=== PATIENT | male | born 2000 | race Caucasian/White ===

== ENCOUNTER 2021-04-03 10:00 | Outpatient (RCR) | payer OTHER, SELFPAY ==
--- NOTE | 2021-03-19 14:21 | PC.NURSE ---
Case opened in treatment team
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
[2021-03-19 14:42] VITALS: BMI 34.0
--- NOTE | 2021-03-20 08:39 | PC.ADMIT ---
Patient is a 20 year old male who was referred to [facility] by his outpatient clinician d/t patient struggling with increased depression with passive SI, no plan or intent, and increased anxiety. Feels much guilt and shame over not being able to work d/t his mental health and experiencing feelings of helplessness and hopelessness. Patient has low self esteem. Patient stated that it was suggested to him that he go on disability as he is unable to work at this time however patient stated he does not want to live a life on disability. Patient has been self medicating with marijuana. Patient is alert and oriented x4. Presents with depressed mood and affect. Denied current SI however patient reports he has thoughts all the time and when feeling better the thoughts are always in the back of his mind. Denied plan or intent to harm of kill himself. 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 Patient gave verbal permission to email him a copy of his safety plan. Patient stated that it was suggested to him to go on disability as he is not able to work. Patient stated he wants to work and does not want to live a life on disability. Patient is using marijuana daily to self medicate. Patient also drinking ETOH 2 x a week from 4-6 beers. Educated patient on the effects of heavy marijuana use and ETOH use and mixing with medications. Medications reconciled with patient and [facility]. Patient reports that he sometimes forgets to take his medications. Educated patient on tips to improve medication compliance.
--- NOTE | 2021-03-20 12:07 | PC.NURSE ---
TW called pt at 850am to verify verbal consent for a PCP release. Pt answered the phone sounding groggy. Pt informed TW that he gave verbal consent to the release, however he may not attend groups for the day due to not being able to keep his eyes open . TW encouraged pt to attempt the groups, however if not to call his clinician. At 9am pt was a DNS for community meeting. Clinician to reach out to pt.
--- NOTE | 2021-03-20 13:29 | PC.NURSE ---
I called the client. He had been sleeping. We discussed that he couldn't come in today and he agrees to be here on time Tuesday.
--- NOTE | 2021-03-27 09:18 | PC.NURSE ---
Chang did not show up to the program today. He was scheduled for a medication appointment today 03/27/21 at 12:00. Barbara Vaughan will follow up with patient.
--- NOTE | 2021-03-27 09:24 | PC.NURSE ---
I called Chang and woke him up as he did not show up to community meeting this morning. Chang stated he overslept. Patient plans on getting dressed and is going to the first group. Team is aware.
--- NOTE | 2021-03-27 15:58 | P.PNPSP_ITS ---
Subjective Subjective Date of Service: 03/27/21 Reason For Visit: MDD Subjective Notes: [facility]on Warning Guardianship: No Medical Problems Affecting Mental Status: No Interim History: Chang reports that he is still experiencing dysphoria. He states that he has been taking the Trileptal and venlafaxine for several months. He states at 1st they were helping with his symptoms, but now he feels as if they have plateaued. He states that he has also been through a lot over the past several months, including issues at work, and also needing to put his cat to sleep. He does report intrusive thoughts, passive SI. He states he has no intent or plan. He states that he feels safe, and has support if he needs to reach out to people. We discussed options regarding adjunct of medication, such as consideration of a low-dose of another antidepressant, or considering a low-dose atypical antipsychotic. He states he is willing to try low-dose of Abilify. PLAN: Add abilify 2mg daily. Script sent to pharmacy. Will f/u in one week, sooner if needed. Medication Compliance: Yes Side effects from medications: No Attending Groups: Yes Review of Systems Constitutional: Reports no additional constitutional complaints Respiratory: Reports chest congestion and Reports cough Comments: Patient is suffering with cold symptoms, plans to reach out to medical provider if symptoms do not subside by this Tuesday. Psychiatric: Reports depression and Reports suicidal ideation (Intrusive thoughts of self-harm, no intent, no plan. Reports he does feel ) Mental Status Exam Mental Status Exam Narrative: Well-developed, well-nourished male, in no apparent distress. Sitting up in chair during encounter. Patient Appearance: Well Grooomed and Appropriate Patient Orientation: Person, Place, Time and Situation Level of Consciousness: Awake and Appropriate Patient Behavior: Appropriate and Good Eye Contact Mood Description: Appropriate, Depressed and Anxious Affect Description: Appropriate, Depressed and Anxious Patient Cognition Impaired: No Ability to Follow Directions: Excellent Speech Pattern: Clear and Monotone Hallucinations: None Delusions: Not Present Thought Process: Intact, Goal Oriented and Linear Thought Content: positive for Intact and positive for Suicidal Ideation (passive, no intnet, no plan) Depressive Symptoms: Increased Anxiety, Crying Spells, Hopelessness, Feelings of Guilt, Low Self Esteem and Loss of Energy Judgement: Good Judgement and Insight: Overall judgment and insight intact, patient is help see renetta. Diagnostics Vital Signs (24Hr): Body Mass Index 34.0 Assessment & Plan Assessment & Plan (1) Major depressive disorder, recurrent severe without psychotic features: Status: Acute Code(s): F33.2 - Major depressive disorder, recurrent severe without psychotic features Assessment and Plan: Patient does report continued depressive symptoms, with intrusive thoughts, pa reid SI. Reports he is taking Trileptal and Effexor as ordered, but feels they are not helping enough to manage his symptoms. Patient is willing to try low- dose Abilify as an adjunct of medication at this time. PLAN: Start abilify Script sent to pharmacy. F/u in one week, sooner if needed. Patient educated on: diagnosis, medication risk/benefits and therapeutic strategies Informed Consent: understands Reason for contiued partial hosp. stay Substantial Risk for: inability to function and med/psych decompensation Certification I certify that partial hospital treatment is medically necessary due to the symptoms and problems resulting from the patient's mental illness and the failure to treat the patient at the partial hospital level of care would likely result in the patient requiring inpatient psychiatric care which could not be prevented at a less intensive level of care. Greater than 50% of the session was spent on counseling and/or coordination of care Discharge Plan Discharge Attending provider: Darrick Richmond Medications: New aripiprazole [Abilify] 2 mg tablet 2 mg PO DAILY 7 Days Qty: 7 RF: 0 No Action oxcarbazepine [Trileptal] 600 mg Tablet 1,200 mg PO BEDTIME RF: 0 cholecalciferol (vitamin D3) [Vitamin D3] 50 mcg (2,000 unit) Capsule 50 mcg PO DAILY RF: 0 venlafaxine 225 mg Tablet Extended Release 24hr 225 mg PO DAILY RF: 0 Telehealth Telehealth Location of provider rendering services: practice address Location of patient: address on file Patient Identification confirmed using: Name, : Yes Telehealth method: video Patient verbally consented to treatment: Yes Patient verbally consented to billing insurance company: Yes Patient informed of any privacy concerns related to visit: Yes Time spent with patient (mins): 15
--- NOTE | 2021-03-30 09:22 | PC.NURSE ---
Pt did not attend community meeting. Tw called pt however no answer and voicemail full. Email sent to check pt status and safety, asking pt to call into program. Reminded pt that the emergency contact will be called should he not check in. Pt informed he will have to take the day, and [facility] Pt informed that assigned clinician out today, so if he left a with her it could not be retrieved. Awaiting call/email back.
--- NOTE | 2021-03-30 12:07 | PC.NURSE ---
Pt called the program to inform that he again had overslept. He reported that he had set his alarm, however his phone during the night. 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 Pt reported that he was upset with himself that he overslept again. Pt reported that he was safe and he would be at [facility] tomorrow.
--- NOTE | 2021-03-31 13:33 | HO.PHPPROGNO ---
Subjective Subjective Date of Service: 03/31/21 Reason For Visit: MDD Subjective Notes: [place] Warning Guardianship: No Medical Problems Affecting Mental Status: No Interim History: Chang reports that He has been taking the Abilify 2 mg for approximately 3-4 days. He states that currently he feels his depression is somewhat less than it was last week, but it is still there. Reports experiencing depressive symptoms of guilt, feeling bad about himself, poor concentration, decreased energy. Patient also reported that I am just frustrated, with the mistakes I make . When asked to elaborate, he states that he feels he is very forgetful and he will enter the house, lock door behind him, which will in turn walk his mother out. He states that he beats myself up a lot over stuff like this . Patient was yawning during encounter. He reports that he slept 10 hours last night, and that he believes it was too much sleep, and now he is overtired . He denies any thoughts of harm to self or others, no safety concerns. We discussed current medication regimen. Patient will continue Abilify 2 mg daily that was added last week, with consideration of increasing dose in several days. Patient will check in with this provider later this week regarding medication dose. Refill sent to pharmacy. Medication Compliance: Yes Side effects from medications: No Attending Groups: Yes Review of Systems Review of Systems a review of systems was completed and was negative except for fatigue. Yes all other systems are reviewed and are negative Constitutional: Reports daytime sleepiness and Reports fatigue Endocrine: Reports fatigue Mental Status Exam Mental Status Exam Narrative: Well-developed, well-nourished male, in no apparent distress. Sitting up appropriately, attentive during encounter. Patient Appearance: Well Grooomed, Fatigued and Appropriate Patient Orientation: Person, Place, Time and Situation Level of Consciousness: Awake, Appropriate and Alert Patient Behavior: Appropriate, Cooperative and Good Eye Contact Mood Description: Calm, Appropriate and Depressed Affect Description: Appropriate, Depressed and Blunted Patient Cognition Impaired: No Ability to Follow Directions: Excellent Speech Pattern: Clear, Appropriate and Coherent Memory Description: Intact Hallucinations: None Delusions: Not Present Thought Process: Intact, Goal Oriented and Linear Thought Content: positive for Intact, positive for Goal Oriented, positive for Linear and positive for Suicidal Ideation ( Denies any type of thoughts of harm to self or others.) Depressive Symptoms: Sleeping More Than Usual, Loss of Int. in Activity, Feelings of Worthlessness, Feelings of Guilt, Unhappiness and Increased Fatigue Judgement: Fair Diagnostics Vital Signs (24Hr): Body Mass Index 34.0 Assessment & Plan Assessment & Plan (1) Major depressive disorder, recurrent severe without psychotic features: Status: Acute Code(s): F33.2 - Major depressive disorder, recurrent severe without psychotic features Assessment and Plan: Patient does reports some improvement in depression, however still has significant amount of depressive symptoms present. Recently started Abilify 2 mg as adjunct of to present meds. Plan: No current med changes at this time. Script for Abilify refill sent to pharmacy. Will follow-up with patient later this week to discuss possible increase in Abilify if needed, Otherwise will meet with patient as per protocol.. (2) Cannabis dependence, daily use: Status: Acute Code(s): F12.20 - Cannabis dependence, uncomplicated Patient educated on: diagnosis, medication risk/benefits and therapeutic strategies Informed Consent: understands Reason for contiued partial hosp. stay Substantial Risk for: inability to function and med/psych decompensation Certification I certify that partial hospital treatment is medically necessary due to the symptoms and problems resulting from the patient's mental illness and the failure to treat the patient at the partial hospital level of care would likely result in the patient requiring inpatient psychiatric care which could not be prevented at a less intensive level of care. Greater than 50% of the session was spent on counseling and/or coordination of care Discharge Plan Discharge Attending provider: Darrick Richmond Medications: New aripiprazole [Abilify] 2 mg tablet 2 mg PO DAILY 7 Days Qty: 7 RF: 0 No Action oxcarbazepine [Trileptal] 600 mg Tablet 1,200 mg PO BEDTIME RF: 0 cholecalciferol (vitamin D3) [Vitamin D3] 50 mcg (2,000 unit) Capsule 50 mcg PO DAILY RF: 0 venlafaxine 225 mg Tablet Extended Release 24hr 225 mg PO DAILY RF: 0 Telehealth Telehealth Location of provider rendering services: practice address Location of patient: address on file Patient Identification confirmed using: Name, : Yes Telehealth method: video Patient verbally consented to treatment: Yes Patient verbally consented to billing insurance company: Yes Patient informed of any privacy concerns related to visit: Yes Time spent with patient (mins): 15
--- NOTE | 2021-04-03 14:46 | HO.PHPPROGNO ---
Subjective Subjective Date of Service: 04/03/21 Reason For Visit: MDD Subjective Notes: [place] Warning Guardianship: No Medical Problems Affecting Mental Status: No Interim History: Met with patient today on his final day in [facility]. He reports that current medication regimen is working well, that he feels safe, and ready to be discharged. States ?I am in a good mood today ?. Denies any thought of harm to self or others. States that he does not require any refills at this time. No safety concerns. Medication Compliance: Yes Side effects from medications: No Attending Groups: Yes Review of Systems Review of Systems Well-developed, well-nourished male, no apparent distress. Alert and oriented x4, fully conversant during encounter. No mood lability or restriction noted. Yes all other systems are reviewed and are negative Mental Status Exam Mental Status Exam Patient Appearance: Well Grooomed and Appropriate Patient Orientation: Person, Place, Time and Situation Level of Consciousness: Awake, Appropriate and Alert Patient Behavior: Appropriate, Cooperative and Good Eye Contact Mood Description: Appropriate Affect Description: Appropriate Patient Cognition Impaired: No Ability to Follow Directions: Excellent Speech Pattern: Clear, Appropriate and Coherent Memory Description: Intact Hallucinations: None Delusions: Not Present Thought Process: Intact, Goal Oriented and Linear Thought Content: positive for Intact, positive for Goal Oriented and positive for Linear Judgement: Fair Judgement and Insight: Judgment and insight overall appear improved. Diagnostics Vital Signs (24Hr): Body Mass Index 34.0 Assessment & Plan Assessment & Plan (1) Major depressive disorder, recurrent severe without psychotic features: Status: Acute Code(s): F33.2 - Major depressive disorder, recurrent severe without psychotic features Assessment and Plan: Patient feels overall improved depressive symptoms with added Abilify. No safety concerns at this time. Patient will follow up with his own outpatient provider going forward. Patient educated on: diagnosis, medication risk/benefits and therapeutic strategies Informed Consent: understands Reason for contiued partial hosp. stay Substantial Risk for: stable for discharge Certification I certify that partial hospital treatment is medically necessary due to the symptoms and problems resulting from the patient's mental illness and the failure to treat the patient at the partial hospital level of care would likely result in the patient requiring inpatient psychiatric care which could not be prevented at a less intensive level of care. Greater than 50% of the session was spent on counseling and/or coordination of care Discharge Plan Discharge Attending provider: Darrick Richmond Additional Instructions: Tara Winter 04/07/21 Dr Schwartz Both at [facility] Medications: New aripiprazole [Abilify] 2 mg tablet 2 mg PO DAILY 7 Days Qty: 7 RF: 0 No Action oxcarbazepine [Trileptal] 600 mg Tablet 1,200 mg PO BEDTIME RF: 0 cholecalciferol (vitamin D3) [Vitamin D3] 50 mcg (2,000 unit) Capsule 50 mcg PO DAILY RF: 0 venlafaxine 225 mg Tablet Extended Release 24hr 225 mg PO DAILY RF: 0 Stand Alone Forms: Patient Portal Discharge page Telehealth Telehealth Location of provider rendering services: practice address Location of patient: address on file Patient Identification confirmed using: Name, : Yes Telehealth method: video Patient verbally consented to treatment: Yes Patient verbally consented to billing insurance company: Yes Patient informed of any privacy concerns related to visit: Yes Time spent with patient (mins): 15
--- NOTE | 2021-04-06 11:39 | PC.NURSE ---
Patient discharged 04/03/2021. Patient met with Nereyda Ross APRN re: medications, discharge. Patient states he is ready for discharge. No safety issues.
== END 2021-04-06 07:52 | disposition home or self-care (01) ==
LOC: HO.PHPA 10:00
PROVIDERS: Visit Provider Psychiatry & Neurology Psychiatry
DX: F33.2 Major depressive disorder, recurrent severe without psychotic features (principal); F12.20 Cannabis dependence, uncomplicated; Z79.899 Other long term (current) drug therapy
CPT/HCPCS: 90791; 90853

== ENCOUNTER 2022-06-04 19:30 | Inpatient (IN) | payer OTHER, MEDICAID, SELFPAY ==
[2022-06-04 19:39] VITALS: BP 128/88; PULSE 95; RESP 18; TEMP 36.7; O2SAT 99; BMI 29.6
--- NOTE | 2022-06-04 19:57 | ED_ITS ---
HPI - Psych General Chief Complaint: Psychiatric Symptoms <DIEGO Bennett Last Filed: 06/04/22 23:36> Stated Complaint: SI,RECENT SELF HARM PER EMS <DIEGO Bennett Last Filed: 06/04/22 23:36> Time Seen by Provider: 06/04/22 19:57 <DIEGO Bennett Last Filed: 06/04/22 23:36> Source: patient and EMS <DIEGO Bennett Last Filed: 06/04/22 23:36> Mode of arrival: EMS <DIEGO Bennett Last Filed: 06/04/22 23:36> Limitations: no limitations <DIEGO Bennett Last Filed: 06/04/22 23:36> History of Present Illness HPI Narrative: 21 y/o M with a PMHx of cannabis dependence and depression who presents to the ED via EMS on a Section 12 for evaluation of depression and SI. The patient reports that he has been feeling increasingly depressed for the past few weeks. 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 He reports + SI at this time, denies HI. He reports compliance with psych medications at home. He denies auditory/visual/tactile hallucinations. Denies medical complaints at this time including chest pain, shortness of breath, abdominal pain, nausea, vomiting, dizziness, headache. <DIEGO Bennett Last Filed: 06/04/22 23:36> MD complaint: suicidal ideation and feels depressed <DIEGO Bennett Last Filed: 06/04/22 23:36> Related Data Home Medications: Home Medications Medication Instructions Recorded Confirmed cholecalciferol (vitamin D3) 50 1 cap PO QAM 06/04/22 06/04/22 mcg (2,000 unit) capsule (Vitamin D3) hydroxyzine HCl 50 mg tablet 2 tab PO DAILY PRN Anxiety 06/04/22 06/04/22 quetiapine 100 mg tablet 1 tab PO BEDTIME anxiety 06/04/22 06/04/22 selegiline 9 mg/24 hr transdermal 1 patch topical DAILY 06/04/22 06/04/22 24 hour patch (Emsam) selegiline HCl 5 mg tablet 1 tab PO DAILY 06/04/22 06/04/22 <DIEGO Bennett Last Filed: 06/04/22 23:36> Allergies/Adverse Reactions: Allergies Allergy/AdvReac Type Severity Reaction Status Date / Time No Known Allergies Allergy Verified 03/19/21 15:02 <DIEGO Bennett Last Filed: 06/04/22 23:36> Review of Systems Review of Systems: Constitutional : No Weight loss, No Fever, No Chills, No Fatigue, No Malaise ENT/Mouth : No sore throat, No Rhinorrhea Eyes: No Eye Pain, No Swelling, No Redness Cardiovascular : No Chest Pain, No SOB, No Dyspnea on Exertion, No Orthopnea, No Edema, No Palpitations Respiratory : No Cough, No Sputum, No Wheezing Gastrointestinal : No Nausea, No Vomiting, No Diarrhea, No Constipation, No abdominal Pain, No Hematochezia, No Melena Genitourinary : No Dysuria, No Urinary Frequency, No Hematuria, Musculoskeletal : No joint pain, No Myalgias, No Joint Swelling Skin : No Skin Lesions, No rash Neuro : No Weakness, No Numbness, No Dizziness, No Headache Psych : No Anxiety/Panic, + Depression, + SI, No hallucinations, No HI All other systems reviewed and are negative <DIEGO Bennett Last Filed: 06/04/22 23:36> Yes all other systems are reviewed and are negative <DIEGO Bennett Last Filed: 06/04/22 23:36> [facility] Past Medical History Attestation statement: The following information was validated with the patient. <DIEGO Bennett Last Filed: 06/04/22 23:36> Source: old records reviewed and nursing notes reviewed <DIEGO Bennett Last Filed: 06/04/22 23:36> Social History Social History: Social History Household Members: Family Patient Tobacco Use Status: Never used Tobacco Advance Directives: No <DIEGO Bennett Last Filed: 06/04/22 23:36> Physical Exam 2 Vital Signs: Vital Signs: Last Vital Signs Temp 97.7 F 09/16/22 23:07 Pulse 81 06/04/22 23:07 Resp 16 06/04/22 23:07 BP 123/85 06/04/22 23:07 Pulse Ox 98 06/04/22 23:07 O2 Del Method 06/04/22 23:07 BMI result Body Mass Index 29.6 VSS <DIEGO Bennett - Last Filed: 06/04/22 23:36> Vital Signs: Last Vital Signs Temp 97.7 F 06/04/22 23:07 Pulse 81 06/04/22 23:07 Resp 16 06/04/22 23:07 BP 123/85 06/04/22 23:07 Pulse Ox 98 06/04/22 23:07 O2 Del Method 06/04/22 23:07 BMI result Body Mass Index 29.6 <Cassius Mejia MD - Last Filed: 06/05/22 09:29> Appearance: Alert.? Oriented X3.? No acute distress.?Appears comfortable, responsive to questions. Head: Normocephalic, atraumatic, no step-offs or deformities Eyes: Pupils equal, round and reactive to light.? Neck: Normal inspection.? Neck supple.? CVS: Normal heart rate and rhythm.? Pulses normal.? Respiratory: No respiratory distress.? Breath sounds normal.? Abdomen: Soft and nontender.? Skin: Skin warm and dry.? Normal skin color.? Normal skin turgor.?Healing, almaguer perficial linear abrasions on upper extremities. Extremities: No lower extremity edema.? No calf ttp. 5/5 strength to bilateral upper and lower extremities Neuro: Oriented X 3.? No motor deficit.? No sensory deficit. CN 2-12 intact <DIEGO Bennett - Last Filed: 06/04/22 23:36> Course Reevaluation(s) Reevaluation #1: CBC within normal limits. Chemistry pending. Toxicology positive for marijuana ethanol negative. COVID negative. <DIEGO Bennett - Last Filed: 06/04/22 23:36> Time: 21:35 <DIEGO Bennett - Last Filed: 06/04/22 23:36> Reevaluation #2: Chemistry with no acute findings. At this time patient will be placed in physician observation to allow more time to be evaluated by the behavioral health team. At time observation was started patient common cooperative no acute distress <DIEGO Bennett - Last Filed: 06/04/22 23:36> Time: 23:35 <DIEGO Bennett - Last Filed: 06/04/22 23:36> Reevaluation #3: Patient seen by N and plan for inpatient psych admission for increased depression with suicidal ideation , patient with stable vitals last night was uneventful <Cassius Mejia MD - Last Filed: 06/05/22 09:29> Time: 09:29 <Cassius Mejia MD - Last Filed: 06/05/22 09:29> MDM - Psych MDM Narrative Medical decision making narrative: 20:00 21 y/o M presenting on a Section 12 for evaluation of increasing depression and SI. Recent self harm, cutting upper extremities with box machine operator. Reports compliance with medications. PE benign. Plan to obtain medical clearance and obtain behavioral health evaluation. <DIEGO Bennett - Last Filed: 06/04/22 23:36> Medical Records Attestation: I reviewed the patient's medical records. <DIEGO Bennett - Last Filed: 06/04/22 23:36> Lab Data Attestation: I reviewed the patient's lab results. <DIEGO Bennett - Last Filed: 06/04/22 23:36> Result diagrams: : 06/04/22 20:08 06/04/22 22:56 <DIEGO Bennett - Last Filed: 06/04/22 23:36> Labs: Lab Results 06/04/22 06/04/22 06/04/22 Range/Units 20:08 20:08 20:08 WBC 7.7 (4.8-10.8) X10*3/uL RBC 5.06 (4.60-5.80) X10*6/uL Hgb 14.7 (14.0-18.0) g/dl Hct 43.0 (42.0-52.0) % MCV 85.0 (80.0-98.0) fL MCH 29.1 (27.0-33.0) pg MCHC 34.2 (31.0-36.0) g/dl RDW 12.5 (11.0-16.0) % Plt Count 250 (160-400) X10*3/uL MPV 10.2 (9.4-12.4) fL Immature Gran % (Auto) 0.4 (0.0-0.4) % Neut % (Auto) 47.6 (45-73) % Lymph % (Auto) 40.0 (20-40) % [place] % (Auto) 7.8 (2-11) % Eos % (Auto) 3.4 (0-4) % Baso % (Auto) 0.8 (0-2) % Lymph # (Auto) 3.1 (1.2-4.9) X10*3/uL [place] # (Auto) 0.6 (0.1-1.2) X10*3/uL Eos # (Auto) 0.3 (0.0-0.4) X10*3/uL Baso # (Auto) 0.1 (0.0-0.2) X10*3/uL Abs Immat Gran (auto) 0.03 (0.00-0.03) X10*3/uL Absolute Neuts (auto) 3.7 (2.0-8.3) x10*3/uL Absolute Nucleated RBC 0.000 (0.0-0.012) X10*3/uL Nucleated RBC % (auto) 0.0 (0.0-0.2) /100WBC Sodium Cancelled Potassium Cancelled Chloride Cancelled Carbon Dioxide Cancelled Anion Gap Cancelled BUN Cancelled Creatinine Cancelled Estim Creat Clear Calc Cancelled Estimated GFR Cancelled Random Glucose Cancelled Calcium Cancelled Total Bilirubin Cancelled AST Cancelled ALT Cancelled Alkaline Phosphatase Cancelled Total Protein Cancelled Albumin Cancelled Urine Opiates Screen (Not Detect) Urine Fentanyl Screen (Not Detect) Ur Barbiturates Screen (Not Detect) Ur Phencyclidine Scrn (Not Detect) Ur Amphetamines Screen (Not Detect) U Benzodiazepines Scrn (Not Detect) Urine Cocaine Screen (Not Detect) U Marijuana (THC) Screen (Not Detect) Ethyl Alcohol < 10 mg/dL COVID-19 (NIEL) Negative (Negative) COVID-19 Clin Com See Note 06/04/22 06/04/22 06/04/22 Range/Units 20:13 22:56 22:56 WBC (4.8-10.8) X10*3/uL RBC (4.60-5.80) X10*6/uL Hgb (14.0-18.0) g/dl Hct (42.0-52.0) % MCV (80.0-98.0) fL MCH (27.0-33.0) pg MCHC (31.0-36.0) g/dl RDW (11.0-16.0) % Plt Count (160-400) X10*3/uL MPV (9.4-12.4) fL Immature Gran % (Auto) (0.0-0.4) % Neut % (Auto) (45-73) % Lymph % (Auto) (20-40) % [place] % (Auto) (2-11) % Eos % (Auto) (0-4) % Baso % (Auto) (0-2) % Lymph # (Auto) (1.2-4.9) X10*3/uL [place] # (Auto) (0.1-1.2) X10*3/uL Eos # (Auto) (0.0-0.4) X10*3/uL Baso # (Auto) (0.0-0.2) X10*3/uL Abs Immat Gran (auto) (0.00-0.03) X10*3/uL Absolute Neuts (auto) (2.0-8.3) x10*3/uL Absolute Nucleated RBC (0.0-0.012) X10*3/uL Nucleated RBC % (auto) (0.0-0.2) /100WBC Sodium 139 Potassium 4.4 Chloride 102 Carbon Dioxide 28 Anion Gap 13 BUN 12 Creatinine 0.91 Estim Creat Clear Calc 138.7 Estimated GFR > 60 Random Glucose 84 Calcium 9.6 Total Bilirubin 0.3 AST 15 ALT 19 Alkaline Phosphatase 59 Total Protein 6.8 Albumin 4.5 Urine Opiates Screen Not Detected (Not Detect) Urine Fentanyl Screen Not Detected (Not Detect) Ur Barbiturates Screen Not Detected (Not Detect) Ur Phencyclidine Scrn Not Detected (Not Detect) Ur Amphetamines Screen Not Detected (Not Detect) U Benzodiazepines Scrn Not Detected (Not Detect) Urine Cocaine Screen Not Detected (Not Detect) U Marijuana (THC) Screen POSITIVE H (Not Detect) Ethyl Alcohol < 10 mg/dL COVID-19 (NEIL) (Negative) COVID-19 Clin Com <DIEGO Bennett - Last Filed: 06/04/22 23:36> Lab Results 06/04/22 06/04/22 06/04/22 Range/Units 20:08 20:08 20:08 WBC 7.7 (4.8-10.8) X10*3/uL RBC 5.06 (4.60-5.80) X10*6/uL Hgb 14.7 (14.0-18.0) g/dl Hct 43.0 (42.0-52.0) % MCV 85.0 (80.0-98.0) fL MCH 29.1 (27.0-33.0) pg MCHC 34.2 (31.0-36.0) g/dl RDW 12.5 (11.0-16.0) % Plt Count 250 (160-400) X10*3/uL MPV 10.2 (9.4-12.4) fL Immature Gran % (Auto) 0.4 (0.0-0.4) % Neut % (Auto) 47.6 (45-73) % Lymph % (Auto) 40.0 (20-40) % [place] % (Auto) 7.8 (2-11) % Eos % (Auto) 3.4 (0-4) % Baso % (Auto) 0.8 (0-2) % Lymph # (Auto) 3.1 (1.2-4.9) X10*3/uL [place] # (Auto) 0.6 (0.1-1.2) X10*3/uL Eos # (Auto) 0.3 (0.0-0.4) X10*3/uL Baso # (Auto) 0.1 (0.0-0.2) X10*3/uL Abs Immat Gran (auto) 0.03 (0.00-0.03) X10*3/uL Absolute Neuts (auto) 3.7 (2.0-8.3) x10*3/uL Absolute Nucleated RBC 0.000 (0.0-0.012) X10*3/uL Nucleated RBC % (auto) 0.0 (0.0-0.2) /100WBC Sodium Cancelled Potassium Cancelled Chloride Cancelled Carbon Dioxide Cancelled Anion Gap Cancelled BUN Cancelled Creatinine Cancelled Estim Creat Clear Calc Cancelled Estimated GFR Cancelled Random Glucose Cancelled Calcium Cancelled Total Bilirubin Cancelled AST Cancelled ALT Cancelled Alkaline Phosphatase Cancelled Total Protein Cancelled Albumin Cancelled Urine Opiates Screen (Not Detect) Urine Fentanyl Screen (Not Detect) Ur Barbiturates Screen (Not Detect) Ur Phencyclidine Scrn (Not Detect) Ur Amphetamines Screen (Not Detect) U Benzodiazepines Scrn (Not Detect) Urine Cocaine Screen (Not Detect) U Marijuana (THC) Screen (Not Detect) Ethyl Alcohol < 10 mg/dL COVID-19 (NEIL) Negative (Negative) COVID-19 Clin Com See Note 06/04/22 06/04/22 06/04/22 Range/Units 20:13 22:56 22:56 WBC (4.8-10.8) X10*3/uL RBC (4.60-5.80) X10*6/uL Hgb (14.0-18.0) g/dl Hct (42.0-52.0) % MCV (80.0-98.0) fL MCH (27.0-33.0) pg MCHC (31.0-36.0) g/dl RDW (11.0-16.0) % Plt Count (160-400) X10*3/uL MPV (9.4-12.4) fL Immature Gran % (Auto) (0.0-0.4) % Neut % (Auto) (45-73) % Lymph % (Auto) (20-40) % [place] % (Auto) (2-11) % Eos % (Auto) (0-4) % Baso % (Auto) (0-2) % Lymph # (Auto) (1.2-4.9) X10*3/uL [place] # (Auto) (0.1-1.2) X10*3/uL Eos # (Auto) (0.0-0.4) X10*3/uL Baso # (Auto) (0.0-0.2) X10*3/uL Abs Immat Gran (auto) (0.00-0.03) X10*3/uL Absolute Neuts (auto) (2.0-8.3) x10*3/uL Absolute Nucleated RBC (0.0-0.012) X10*3/uL Nucleated RBC % (auto) (0.0-0.2) /100WBC Sodium 139 Potassium 4.4 Chloride 102 Carbon Dioxide 28 Anion Gap 13 BUN 12 Creatinine 0.91 Estim Creat Clear Calc 138.7 Estimated GFR > 60 Random Glucose 84 Calcium 9.6 Total Bilirubin 0.3 AST 15 ALT 19 Alkaline Phosphatase 59 Total Protein 6.8 Albumin 4.5 Urine Opiates Screen Not Detected (Not Detect) Urine Fentanyl Screen Not Detected (Not Detect) Ur Barbiturates Screen Not Detected (Not Detect) Ur Phencyclidine Scrn Not Detected (Not Detect) Ur Amphetamines Screen Not Detected (Not Detect) U Benzodiazepines Scrn Not Detected (Not Detect) Urine Cocaine Screen Not Detected (Not Detect) U Marijuana (THC) Screen POSITIVE H (Not Detect) Ethyl Alcohol < 10 mg/dL COVID-19 (NEIL) (Negative) COVID-19 Clin Com <Cassius Mejia MD - Last Filed: 06/05/22 09:29> Critical Care Time Critical Care Time Critical Care Time: No <DIEGO Bennett - Last Filed: 06/04/22 23:36> Discharge Plan Discharge Clinical Impression: Suicidal ideation, Depression <DIEGO Bennett - Last Filed: 06/04/22 23:36> Patient Disposition: Still a Patient <DIEGO Bennett - Last Filed: 06/04/22 23:36> Prescriptions: No Action hydroxyzine HCl 50 mg tablet 2 tab PO DAILY PRN (Reason: Anxiety) quetiapine 100 mg tablet 1 tab PO BEDTIME selegiline HCl 5 mg tablet 1 tab PO DAILY Emsam 9 mg/24 hr patch 24 hour 1 patch topical DAILY cholecalciferol (vitamin D3) [Vitamin D3] 50 mcg (2,000 unit) capsule 1 cap PO QAM <DIEGO Bennett Last Filed: 06/04/22 23:36>
[2022-06-04 20:20] LABS: MANUAL DIFF FLAG NO
[2022-06-04 20:34] LABS: Ethanol < 10 mg/dL
[2022-06-04 20:35] LABS: COVID-19 Test Negative (Negative)
[2022-06-04 20:39] LABS: Basophils Absolute Auto 0.1 X10*3/uL (0.0-0.2); Basophils Percent Auto 0.8 % (0-2); Eosinophils Absolute Auto 0.3 X10*3/uL (0.0-0.4); Eosinophils Percent Auto 3.4 % (0-4); Hemoglobin 14.7 g/dl (14.0-18.0); Imm Gran Abs Auto 0.03 X10*3/uL (0.00-0.03); Imm Gran Pct Auto 0.4 % (0.0-0.4); Lymphocytes Absolute Auto 3.1 X10*3/uL (1.2-4.9); Mean Corpuscular HGB Conc 34.2 g/dl (31.0-36.0); Mean Corpuscular Hemoglobin 29.1 pg (27.0-33.0); Mean Platelet Volume 10.2 fL (9.4-12.4); Monocytes Absolute Auto 0.6 X10*3/uL (0.1-1.2); Monocytes Percent Auto 7.8 % (2-11); Neutrophils Absolute Auto 3.7 x10*3/uL (2.0-8.3); Neutrophils Percent Auto 47.6 % (45-73); Platelet Count 250 X10*3/uL (160-400); Red Blood Count 5.06 X10*6/uL (4.60-5.80); Red Cell Distribution Width 12.5 % (11.0-16.0); White Blood Count 7.7 X10*3/uL (4.8-10.8)
[2022-06-04 20:42] LABS: Amphetamine Screen Urine Not Detected (Not Detect); Barbiturates, Urine Not Detected (Not Detect); Benzodiazepines Screen Urine Not Detected (Not Detect); Cannabinoid Screen Urine POSITIVE (Not Detect); Cocaine Screen Urine Not Detected (Not Detect); Fentanyl, urine Not Detected (Not Detect); Opiate Screen Urine Not Detected (Not Detect); Phencyclidine Screen Urine Not Detected (Not Detect)
--- NOTE | 2022-06-04 21:21 | PHA.MEDREC ---
Pharmacy Consult ? Medication Reconciliation Pharmacy has reviewed the medication reconciliation completed by Clinton. Angela Brown, SabineD
[2022-06-04] MEDS: QUEtiapine Fumarate 100 MG TABLET PO (21:45)
[2022-06-04 23:07] VITALS: BP 123/85; PULSE 81; RESP 16; TEMP 36.5; O2SAT 98
[2022-06-04 23:20] LABS: Alanine Aminotransferase 19 U/L (0-40); Albumin Level 4.5 g/dL (3.5-5.0); Alkaline Phosphatase 59 U/L (39-117); Anion Gap 13 (12-20); Aspartate Amino Transferase 15 U/L (5-37); Bilirubin Total 0.3 mg/dL (0.0-1.0); Blood Urea Nitrogen 12 mg/dL (9-16); Calcium 9.6 mg/dL (8.4-10.2); Carbon Dioxide 28 mmol/L (22-29); Chloride 102 mmol/L (96-108); Creatinine Clr Calc Pharmacy 138.7; Estimated Glomerular Filt Rate > 60; Glucose Random 84 mg/dL (60-115); Potassium 4.4 mmol/L (3.3-5.1); Sodium 139 mmol/L (135-145); Total Protein 6.8 g/dL (6.5-8.0)
[2022-06-04 23:24] LABS: Ethanol < 10 mg/dL
--- NOTE | 2022-06-05 | ECG_ITS ---
Test Reason : MEDICAL CLEARANCE Blood Pressure : / mmHG Vent. Rate : 085 BPM Atrial Rate : 085 BPM P-R Int : 122 ms QRS Dur : 088 ms QT Int : 340 ms P-R-T Axes : -01 003 033 degrees QTc Int : 404 ms Normal sinus rhythm Minimal voltage criteria for LVH, may be normal variant ( R in aVL ) Borderline ECG No previous ECGs available Referred By: Tonie Urias Electronically Signed By:NATALIE BRAMBILA
--- NOTE | 2022-06-05 06:31 | PC.NURSE ---
Patient slept through the night, no distress observed/reported, patient was assessed by [facility] in the community, disposition is section 12 inpatient bed search, pre-accepted to [facility] pending insurance authorization, compliant with medication, behavior irritable at time but non concerning, will continue to monitor.
--- NOTE | 2022-06-05 11:42 | PC.NURSE ---
in doing rounds, patient made angry sounding statement to this residential mortgage underwriter something like no one notices me , patient later sat self on floor.
--- NOTE | 2022-06-05 16:38 | PC.NURSE ---
Chang was admitted to [facility] at 1345 [place] [facility] [place] for treatment of MDD with suicidality. He signed a 3 day notice on arrival to the unit. Recent stressors include of family pet, loss of job and ensuing financial problems. Patient reports he has been suicidal since he can remember and has no current intent or plan to harm himself or others. He was alert on arrival but uncooperative with admission process. He presents as angry and negative. Mood is depressed. Affect is labile, mostly angry but occasionally tearful. Patient declines to answer assessment questions of any kind. He does not appear to respond to internal stimuli. He is refusing to eat or drink. He appears from his state ID to have lost a significant amount of weight. Per crisis evaluation he uses cannabis but no other substances. Ekg indicates possible LVH. Sarah Pizarro aware. He is refusing vital signs. Chang is placed on q 15 minute checks for safety.
[2022-06-05 18:00] VITALS: BP 111/68; TEMP 36.6; O2SAT 99
[2022-06-05] MEDS: QUEtiapine Fumarate 100 MG TABLET PO (19:50)
--- NOTE | 2022-06-06 04:20 | PC.NURSE ---
Patient reported to TW that he wanted to issue complaint due to being admitted to ED as Sec. 12. Patient came to unit as CV and subsequently signed a 3 day but continued to focus on the Sec. 12. Patient was advised to write complaint to Human Rights Officer and was assured that it would be followed up on this week. Patient was amenable to this solution.
[2022-06-06 08:30] VITALS: BP 141/86; PULSE 100; RESP 18; TEMP 36.6; O2SAT 98
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
--- NOTE | 2022-06-06 14:05 | PM.PSYDC ---
DS: Providers Provider Date of Service: 06/06/22 Date of admission: 06/05/22 12:33 Primary care physician: CHRIS ALMARAZ DS: Medications Discharge Medications Home Medications: Home Medications Medication Instructions Recorded Confirmed cholecalciferol (vitamin D3) 50 1 cap PO QAM 06/04/22 06/04/22 mcg (2,000 unit) capsule (Vitamin D3) hydroxyzine HCl 50 mg tablet 2 tab PO DAILY PRN Anxiety 06/04/22 06/04/22 quetiapine 100 mg tablet 1 tab PO BEDTIME anxiety 06/04/22 06/04/22 selegiline 9 mg/24 hr transdermal 1 patch topical DAILY 06/04/22 06/04/22 24 hour patch (Emsam) selegiline HCl 5 mg tablet 1 tab PO DAILY 06/04/22 06/04/22 Mental Status Exam Mental Status Exam Narrative: Appearance: casually groomed, fair hygiene in NAD Behavior:cooperative psychomotor: no psychomotor agitation or retardation noted Speech: clear, normal rate/rhythm/volume, spontaneous Thought process: linear Thought content: no psychosis, depressed, no SI, wanting to resume treatment OP Mood: depressed Affect: blunted SI:none HI:none VH/AH:none Delusions: none Insight/judgment: poor x 2. Memory/cog: alert, oriented x 3. Data Data Completed and Pending Completed studies during hospitalization [Text1]: 06/04/22 06/04/22 06/04/22 20:08 20:08 20:08 WBC 7.7 RBC 5.06 Hgb 14.7 Hct 43.0 MCV 85.0 MCH 29.1 MCHC 34.2 RDW 12.5 Plt Count 250 MPV 10.2 Immature Gran % (Auto) 0.4 Neut % (Auto) 47.6 Lymph % (Auto) 40.0 Rains % (Auto) 7.8 Eos % (Auto) 3.4 Baso % (Auto) 0.8 Lymph # (Auto) 3.1 Rains # (Auto) 0.6 Eos # (Auto) 0.3 Baso # (Auto) 0.1 Abs Immat Gran (auto) 0.03 Absolute Neuts (auto) 3.7 Absolute Nucleated RBC 0.000 Nucleated RBC % (auto) 0.0 Sodium Cancelled Potassium Cancelled Chloride Cancelled Carbon Dioxide Cancelled Anion Gap Cancelled BUN Cancelled Creatinine Cancelled Estim Creat Clear Calc Cancelled Estimated GFR Cancelled Random Glucose Cancelled Calcium Cancelled Total Bilirubin Cancelled AST Cancelled ALT Cancelled Alkaline Phosphatase Cancelled Total Protein Cancelled Albumin Cancelled Urine Opiates Screen Urine Fentanyl Screen Ur Barbiturates Screen Ur Phencyclidine Scrn Ur Amphetamines Screen U Benzodiazepines Scrn Urine Cocaine Screen U Marijuana (THC) Screen Ethyl Alcohol < 10 COVID-19 (NEIL) Negative COVID-19 Clin Com See Note 06/04/22 06/04/22 06/04/22 20:13 22:56 22:56 WBC RBC Hgb Hct MCV MCH MCHC RDW Plt Count MPV Immature Gran % (Auto) Neut % (Auto) Lymph % (Auto) Rains % (Auto) Eos % (Auto) Baso % (Auto) Lymph # (Auto) Rains # (Auto) Eos # (Auto) Baso # (Auto) Abs Immat Gran (auto) Absolute Neuts (auto) Absolute Nucleated RBC Nucleated RBC % (auto) Sodium 139 Potassium 4.4 Chloride 102 Carbon Dioxide 28 Anion Gap 13 BUN 12 Creatinine 0.91 Estim Creat Clear Calc 138.7 Estimated GFR > 60 Random Glucose 84 Calcium 9.6 Total Bilirubin 0.3 AST 15 ALT 19 Alkaline Phosphatase 59 Total Protein 6.8 Albumin 4.5 Urine Opiates Screen Not Detected Urine Fentanyl Screen Not Detected Ur Barbiturates Screen Not Detected Ur Phencyclidine Scrn Not Detected Ur Amphetamines Screen Not Detected U Benzodiazepines Scrn Not Detected Urine Cocaine Screen Not Detected U Marijuana (THC) Screen POSITIVE H Ethyl Alcohol < 10 COVID-19 (NEIL) COVID-19 Clin Com DS: Summary Hospital Course Hospital Course: Subjective Notes: [place]on Warning, Conditional Voluntary and 3 Day Narrative: Mr. Garcia is a 21 year-old old male with hx of refractory MDD, who was assessed in the community by [facility] after CHD worker contacted crisis for evaluation. Pt has struggled with depression since 2012, multiple medications trials and currently on MAOI which has been most effective of all trials but pt has continued to experience severe symptoms of depression including hopeless, helpless, anhedonia, passive SI, poor sleep. Utox positive for cannabis. HOSPITAL COURSE. Pt admitted on a CV, 15 minutes checks, signed 3 day notice. Pt reports long hx of depression. He was in process of reconnecting with additional services through [facility] due to severe depression. However, it appears that insurance did not cover PHP and therefore, he was advised to go inpatient. Mother reports that there have been current stressors such as cat , but also states his depression has been like this for a long time. No hx of VH/AH. No s/s of hypomania or jose. Pt to discussed with OP psychiatrist, option of ECT or TMS for refractory depression, multiple medication trials with minimal therapeutic benefit. ? Past Psychiatric History: Inpt: [facility] 2018 OP: [facility], Dr. Noemy Schwartz Suicide attempts: none Past trials: citalopram, sertraline, lexapro, effexor. selegiline. Medical Evaluation Reviewed: Yes Status at Discharge Cognitive/behavioral status at discharge: Pt with constricted affect. No SI/HI. no plan or intent to harm self or others. No s/s of psychosis. He is future oriented in that he wants to see his OP team tomorrow and continue treatment. No signs of aggression towards self or others. Functional status at discharge: independent ambulation Overall status at discharge: patient is progressing back to baseline Time Spent with Patient Time attestation: Total time spent providing and/or coordinating discharge services: Discharge Plan Discharge Anticipated Discharge Date/Time: 06/06/22 09:12 Patient Disposition: Home Health Service Discharge Diagnosis: MDD, recurrent, severe Referrals: CHRIS ALMARAZ [Primary Care Provider] - 1 Week Noemy Schwartz MD [Physician] - 06/07/22 Discharge Medications: Continued hydroxyzine HCl 50 mg tablet 2 tab PO DAILY PRN (Reason: Anxiety) quetiapine 100 mg tablet 1 tab PO BEDTIME selegiline HCl 5 mg tablet 1 tab PO DAILY Emsam 9 mg/24 hr patch 24 hour 1 patch topical DAILY cholecalciferol (vitamin D3) [Vitamin D3] 50 mcg (2,000 unit) capsule 1 cap PO QAM Discharge Orders: Discharge Order (Routine); Ordered 06/06/22 Ordered By: Sarah Worley Diet: Regular diet Activity on Discharge: As tolerated Stand Alone Forms: Patient Portal Discharge page, Community Support Care Plan Goals: 1. Maintain mood 2. No SI/HI No aggression towards self or others Health Concerns: Follow up with PCP Plan of Treatment: 1. Take medications as prescribed 2. Go to nearest ED or call 911 in event of emergency Assessment: Pt presents with depressed mood, anhedonia, no plan or intent of ending life, which has been the case for several years. Future oriented in that he is willing and looking forward to continue psychiatric treatment and consider possibility of ECT as he has had multiple medication trials with limited therapeutic benefit. Mother present during assessment, denies any safety concerns at time of discharge and agrees to follow up with ECT referral outpatient. Pt has appointment with his OP psychiatrist Dr. Noemy Schwartz on 06/07/2022. Mother confirms upcoming appointment and states pt has been judiciously following up with all his psychiatric appointments. Discharge Date/Time: 06/06/22 18:30
--- NOTE | 2022-06-06 14:27 | PC.NURSE ---
Chang is alert, fully oriented, cooperative with discharge process. Chang confirms nursing home suicidal ideation without plan or intent to harm himself or others. He is discharged home in care of mother with appointments in place for outpatient psychiatrist tomorrow, therapist twice weekly and business analysis specialist. He is future oriented to trying med changes and trying to get a new job. He verbalizes hope for the proposed med changes and for working again. He denies current physical complaint.
== END 2022-06-06 18:30 | disposition home health service (06) | DRG 751 ==
LOC: HO.ED 23:36 → HO.PADLT16 06-05 13:27
PROVIDERS: Physician Assistant; Admitting Provider Psychiatry & Neurology Psychiatry; Emergency Provider Emergency Medicine; PCP Physician Assistant Medical; Visit Provider Psychiatry & Neurology Psychiatry
DX: F33.2 Major depressive disorder, recurrent severe without psychotic features (principal); R45.851 Suicidal ideations; F12.20 Cannabis dependence, uncomplicated; Z20.822 Contact with and (suspected) exposure to COVID-19; Z79.899 Other long term (current) drug therapy
CPT/HCPCS: 36415; 80053; 80307; 82077; 85025; 87635; 93005; 99285